=== PATIENT | male | born 1950 | race American Indian/Alaskan Native ===

== ENCOUNTER 2018-04-19 19:32 | Inpatient (IN) | payer MEDICARE, OTHER ==
[2018-04-19] MEDS ORDERED: NACL 0.9% 1000 ML 1,000 ML IV ONE ×2 (20:19→22:42)
--- NOTE | 2018-04-19 20:25 | Emergency Department Report ---
ED Syncope HPI - General Chief Complaint: Syncope Stated Complaint: GI BLEED/SYNCOPE Time Seen by Provider: 04/19/18 20:18 - History of Present Illness Initial Comments: Patient is a 67-year-old black male is had multiple gastrointestinal issues his head to [facility] in the past who is here because of syncopal episodes. Patient sounded and it abated and he remembers being dizzy. Family state that he sat up after lying for a prolonged period of time and had a syncopal episode. Patient came to and then when trying to get back up asked out again. Patient had a bowel movement on himself at that time which was very dark in nature. Patient has had multiple blood transfusions in the past secondary to GI bleeds. Patient denies any chest pain shortness of breath fevers chills nausea vomiting. Patient has no exertional component to his weakness since he states he just lays around and watches TV most of the day. Patient is denying any abdominal pain at this time. - Related Data Allergies/Adverse Reactions: Allergies sulfamethoxazole [From ] Allergy (Verified 04/19/18 19:43) Hives trimethoprim [From ] Allergy (Verified 04/19/18 19:43) Hives ED Review of Systems ROS: Stated complaint: GI BLEED/SYNCOPE Other details as noted in HPI Comment: All other systems reviewed and negative ED Past Medical Hx - Past Medical History Previous Medical History?: Yes Hx Hypertension: Yes Hx GERD: Yes Hx Dementia: Yes Additional medical history: pancreatitis, GI Bleed - Surgical History Past Surgical History?: Yes Hx Cholecystectomy: Yes Hx Appendectomy: Yes Additional Surgical History: Whipple, B/L shoulder - Social History Smoking Status: Current Every Day Smoker Substance Use Type: Alcohol ED Physical Exam - General Limitations: Altered Mental Status, Physical Limitation General appearance: alert, in no apparent distress - Head Head exam: Present: atraumatic, normocephalic - Eye Eye exam: Present: normal appearance - ENT ENT exam: Present: mucous membranes moist - Neck Neck exam: Present: normal inspection - Respiratory Respiratory exam: Present: normal lung sounds bilaterally. Absent: respiratory distress, wheezes, rales, rhonchi, stridor - Cardiovascular Cardiovascular Exam: Present: regular rate, normal rhythm. Absent: systolic murmur, diastolic murmur, rubs, gallop - GI/Abdominal GI/Abdominal exam: Present: soft, normal bowel sounds, other (patient has a large midline scar is well-healed. Patient's skin is tenting.). Absent: distended, tenderness, guarding, rebound, rigid - Rectal Rectal exam: Present: bloody stool - Extremities Exam Extremities exam: Present: normal inspection - Back Exam Back exam: Present: normal inspection - Neurological Exam Neurological exam: Present: alert, oriented X3 - Psychiatric Psychiatric exam: Present: normal affect, normal mood - Skin Skin exam: Present: warm, dry, intact, normal color. Absent: rash ED Course Vital Signs 04/19/18 04/19/18 04/19/18 20:10 21:00 21:27 Temperature 98 F 97.8 F Pulse Rate 117 H 113 H 113 H Respiratory 18 17 17 Rate Blood Pressure 105/64 Blood Pressure 110/71 105/64 [Right] O2 Sat by Pulse 95 96 96 Oximetry ED Medical Decision Making - Lab Data Result diagrams: 04/19/18 20:33 04/19/18 20:33 Lab Results 04/19/18 04/19/18 04/19/18 Range/Units 20:33 20:33 20:33 WBC 8.9 (4.5-11.0) K/mm3 RBC 3.12 L (3.65-5.03) M/mm3 Hgb 9.8 L (11.8-15.2) gm/dl Hct 29.3 L (35.5-45.6) % MCV 94 (84-94) fl MCH 32 (28-32) pg MCHC 34 (32-34) % RDW 16.0 H (13.2-15.2) % Plt Count 204 (140-440) K/mm3 Lymph % (Auto) 10.6 L (13.4-35.0) % [place] % (Auto) 7.0 (0.0-7.3) % Eos % (Auto) 0.0 (0.0-4.3) % Baso % (Auto) 0.7 (0.0-1.8) % Lymph # 0.9 L (1.2-5.4) K/mm3 [place]y # 0.6 (0.0-0.8) K/mm3 Eos # 0.0 (0.0-0.4) K/mm3 Baso # 0.1 (0.0-0.1) K/mm3 Seg Neutrophils % 81.7 H (40.0-70.0) % Seg Neutrophils # 7.2 (1.8-7.7) K/mm3 PT (12.2-14.9) Sec. INR (0.87-1.13) APTT (24.2-36.6) Sec. Sodium 136 L (137-145) mmol/L Potassium 3.0 L (3.6-5.0) mmol/L Chloride 83.6 L (98-107) mmol/L Carbon Dioxide 37 H (22-30) mmol/L Anion Gap 18 mmol/L BUN 16 (9-20) mg/dL Creatinine 1.3 (0.8-1.5) mg/dL Estimated GFR > 60 ml/min BUN/Creatinine Ratio 12 % Glucose 102 H (75-100) mg/dL Calcium 7.9 L (8.4-10.2) mg/dL Total Bilirubin 0.90 (0.1-1.2) mg/dL AST 44 H (5-40) units/L ALT 28 (7-56) units/L Alkaline Phosphatase 114 (35-129) units/L Total Protein 5.2 L (6.3-8.2) g/dL Albumin 2.5 L (3.9-5) g/dL Albumin/Globulin Ratio 0.9 % Urine Color (Yellow) Urine Turbidity (Clear) Urine pH (5.0-7.0) Ur Specific [place] (1.003-1.030) Urine Protein (Negative) mg/dL Urine Glucose (UA) (Negative) mg/dL Urine Ketones (Negative) mg/dL Urine Blood (Negative) Urine Nitrite (Negative) Urine Bilirubin (Negative) Urine Urobilinogen (<2.0) mg/dL Ur Leukocyte Esterase (Negative) Urine WBC (Auto) (0.0-6.0) /HPF Urine RBC (Auto) (0.0-6.0) /HPF Hyaline Casts /LPF Urine Mucus /HPF Plasma/Serum Alcohol < 0.01 (0-0.07) % Blood Type 04/19/18 04/19/18 04/19/18 Range/Units 20:35 21:35 21:53 WBC (4.5-11.0) K/mm3 RBC (3.65-5.03) M/mm3 Hgb (11.8-15.2) gm/dl Hct (35.5-45.6) % MCV (84-94) fl MCH (28-32) pg MCHC (32-34) % RDW (13.2-15.2) % Plt Count (140-440) K/mm3 Lymph % (Auto) (13.4-35.0) % Posey % (Auto) (0.0-7.3) % Eos % (Auto) (0.0-4.3) % Baso % (Auto) (0.0-1.8) % Lymph # (1.2-5.4) K/mm3 [place]y # (0.0-0.8) K/mm3 Eos # (0.0-0.4) K/mm3 Baso # (0.0-0.1) K/mm3 Seg Neutrophils % (40.0-70.0) % Seg Neutrophils # (1.8-7.7) K/mm3 PT 12.5 (12.2-14.9) Sec. INR 0.90 (0.87-1.13) APTT 24.0 L (24.2-36.6) Sec. Sodium (137-145) mmol/L Potassium (3.6-5.0) mmol/L Chloride (98-107) mmol/L Carbon Dioxide (22-30) mmol/L Anion Gap mmol/L BUN (9-20) mg/dL Creatinine (0.8-1.5) mg/dL Estimated GFR ml/min BUN/Creatinine Ratio % Glucose (75-100) mg/dL Calcium (8.4-10.2) mg/dL Total Bilirubin (0.1-1.2) mg/dL AST (5-40) units/L ALT (7-56) units/L Alkaline Phosphatase (35-129) units/L Total Protein (6.3-8.2) g/dL Albumin (3.9-5) g/dL Albumin/Globulin Ratio % Urine Color Straw (Yellow) Urine Turbidity Clear (Clear) Urine pH 6.0 (5.0-7.0) Ur Specific [place] 1.005 (1.003-1.030) Urine Protein <15 mg/dl (Negative) mg/dL Urine Glucose (UA) Neg (Negative) mg/dL Urine Ketones Neg (Negative) mg/dL Urine Blood Neg (Negative) Urine Nitrite Neg (Negative) Urine Bilirubin Neg (Negative) Urine Urobilinogen < 2.0 (<2.0) mg/dL Ur Leukocyte Esterase Neg (Negative) Urine WBC (Auto) < 1.0 (0.0-6.0) /HPF Urine RBC (Auto) < 1.0 (0.0-6.0) /HPF Hyaline Casts 3 /LPF Urine Mucus Few /HPF Plasma/Serum Alcohol (0-0.07) % Blood Type O POSITIVE - EKG Data -: EKG Interpreted by Sd - EKG Data 04/19/18 22:34 Sinus tachycardia rate of 112. Normal axis normal intervals. Patient has an occasional PVCs. There are no ST segment elevations or depressions. Time of interpretation is 2024 - Radiology Data [facility] [address] [place] [address] Cat Scan Report Signed Patient: STACIE SAXENA JR MR#: [id number] : 1950 Acct:[id number] Age/Sex: 67 / M ADM Date: 04/19/18 Loc: ED Attending Dr: Ordering Physician: YADIRA JOSEPH MD Date of Service: 04/19/18 Procedure(s): CT head/brain wo con Accession Number(s): [id number] cc: YADIRA JOSEPH MD FINAL REPORT EXAM: CT HEAD/BRAIN WO CON HISTORY: closed head injury, syncope TECHNIQUE: 2.5 millimeter axial images from the skullbase to the vertex. Comparison: None FINDINGS: There is no evidence of an acute intracranial process, intracranial hemorrhage or mass effect. Low attenuation in the subcortical and deep white matter of the cerebral hemispheres bilaterally most likely represents chronic post ischemic demyelination/small vessel disease. Ventricular size is concordant with the degree of atrophy. The visualized portions of the orbits, paranasal and mastoid sinuses are unremarkable. The bony structures are unremarkable. There is no evidence of fracture. IMPRESSION: 1. No evidence of an acute intracranial process, intracranial hemorrhage or mass effect. 2. No evidence of fracture. Transcribed By: ED Dictated By: OC IZQUIERDO MD Electronically Authenticated By: OC IZQUIERDO MD Signed Date/Time: 01/10/29 2150 DD/ 53 TD/TT: 04/19/182153 - Medical Decision Making Patient with obvious GI bleed. Patient will be admitted to the hospitalist service at this time. Patient's hemoglobin at this admission is just slightly decreased however with the amount of blood the patient has in the rectal vault sure that his hemoglobin will drop. Patient will have repeat hemoglobin performed. Critical Care Time: Yes (30) Critical care attestation.: If time is entered above; I have spent that time in minutes in the direct care of this critically ill patient, excluding procedure time. ED Disposition Clinical Impression: Hypokalemia GI bleed Qualifiers: GI bleed type/associated pathology: unspecified gastrointestinal hemorrhage t ype Qualified Code(s): K92.2 - Gastrointestinal hemorrhage, unspecified Syncope Qualifiers: Syncope type: unspecified Qualified Code(s): R55 - Syncope and collapse Disposition: 09 OP ADMIT IP TO THIS HOSP Is pt being admited?: Yes Does the pt Need Aspirin: No Condition: Stable Instructions: Syncope (ED) Time of Disposition: 22:36
[2018-04-19 21:06] LABS: INR 0.9 (0.87-1.13)
[2018-04-19 21:09] LABS: Basophils # (Auto) 0.1 K/mm3 (0.0-0.1); Basophils % (Auto) 0.7 % (0.0-1.8); Hematocrit 29.3 % (35.5-45.6); Hemoglobin 9.8 gm/dl (11.8-15.2); Lymphocytes # (Auto) 0.9 K/mm3 (1.2-5.4); Lymphocytes % (Auto) 10.6 % (13.4-35.0); Mean Corpuscular HGB Conc 34 % (32-34); Mean Corpuscular Volume 94 fl (84-94); Monocytes # (Auto) 0.6 K/mm3 (0.0-0.8); Platelet Count 204 K/mm3 (140-440); Red Blood Count 3.12 M/mm3 (3.65-5.03)
[2018-04-19 21:16] LABS: Alanine Aminotransferase 28 units/L (7-56); Albumin 2.5 g/dL (3.9-5); BUN/Creatinine Ratio 12; Blood Urea Nitrogen 16 mg/dL (9-20); Calcium 7.9 mg/dL (8.4-10.2); Hemolysis Index 11
[2018-04-19] MEDS ORDERED: KCL 10MEQ/100ML 10 MEQ/100 ML BAG IV ONE (21:40)
--- NOTE | 2018-04-19 21:51 | Cat Scan Report ---
FINAL REPORT EXAM: CT HEAD/BRAIN WO CON HISTORY: closed head injury, syncope TECHNIQUE: 2.5 millimeter axial images from the skullbase to the vertex. Comparison: None FINDINGS: There is no evidence of an acute intracranial process, intracranial hemorrhage or mass effect. Low attenuation in the subcortical and deep white matter of the cerebral hemispheres bilaterally most likely represents chronic post ischemic demyelination/small vessel disease. Ventricular size is concordant with the degree of atrophy. The visualized portions of the orbits, paranasal and mastoid sinuses are unremarkable. The bony structures are unremarkable. There is no evidence of fracture. IMPRESSION: 1. No evidence of an acute intracranial process, intracranial hemorrhage or mass effect. 2. No evidence of fracture.
[2018-04-19 22:23] LABS: Bilirubin,Urine NEG (Negative); Blood,Urine NEG (Negative); Color,Urine Straw (Yellow); Hyaline Casts,Urine 3 /LPF; Mucus,Urine FEW /HPF; Protein,Urine <15 mg/dL mg/dL (Negative); RBC,Urine < 1.0 /HPF (0.0-6.0); Urobilinogen,Urine < 2.0 mg/dL (<2.0); WBC,Urine < 1.0 /HPF (0.0-6.0)
[2018-04-19 23:18] LABS: Hematocrit 25.5 % (35.5-45.6); Hemoglobin 8.7 gm/dl (11.8-15.2)
[2018-04-20] MEDS: PROTONIX IV SCH ×3 (00:50→23:27)
[2018-04-20] MEDS ORDERED: PROTONIX IV ONE (00:51)
[2018-04-20] MEDS ORDERED: NACL 0.9% 1000 ML 1,000 ML ONE (00:51)
[2018-04-20] MEDS: NACL 0.9% 1000 ML 1,000 ML IV SCH ×2 (00:53→09:57)
--- NOTE | 2018-04-20 05:05 | History and Physical Report ---
CHIEF COMPLAINT: Syncopal attack. Other complaints include dark tarry stool. HISTORY OF PRESENT ILLNESS: The patient is a 67-year-old man who had a syncopal episode and said he remembers feeling dizzy and family said that the patient sat up after lying for a prolonged period of time and had a syncopal episode. While he was trying to get up, he passed out again and the patient was noted to have bowel movement on himself at the time of passing out with a dark tarry stool noted. There was no history of shortness of breath. No history of chest pain and no history of nausea and vomiting. The patient noted that he has been feeling weak prior to this episode and there was no history of abdominal pain. The patient was brought to the Emergency Room where he was examined and found to have dark bloody stool and presented for admission. PAST MEDICAL HISTORY: Pertinent for hypertension, gastroesophageal reflux disease, dementia, gastrointestinal bleeding in the past, pancreatitis. PAST SURGICAL HISTORY: Pertinent for cholecystectomy, appendectomy, bilateral shoulder surgery, Whipple surgery. FAMILY HISTORY: Noncontributory. SOCIAL HISTORY: The patient smokes cigarettes, drinks alcohol and does not use illicit drugs. MEDICATIONS: The patient's home medications include Lasix 40 mg by mouth twice daily, Ativan 1 mg by mouth every 6 hours, metolazone 2.5 mg by mouth every 48 hours, omeprazole 40 mg by mouth daily, prednisone 10 mg 2 tablets by mouth twice daily, Seroquel XR 50 mg 1 by mouth at bedtime, trazodone 100 mg by mouth at bedtime. ALLERGIES: The patient is allergic to SULFA DRUGS. REVIEW OF SYSTEMS: CONSTITUTIONAL: There is no fever, no chills, no diaphoresis. HEENT: There is no headache or sore throat. CARDIOVASCULAR SYSTEM: There is no chest pain or orthopnea. RESPIRATORY SYSTEM: There is no shortness of breath or cough. GASTROINTESTINAL SYSTEM: There is no abdominal pain, nausea, vomiting, or diarrhea but there is dark bloody stool. NEUROLOGICAL SYSTEM: Syncopal attack noted. No altered mental status. MUSCULOSKELETAL SYSTEM: There is no joint pain or swelling. DERMATOLOGICAL SYSTEM: There is no skin rash or itching. GENITOURINARY SYSTEM: There is no dysuria, hematuria, or flank pain. Rest of system review is normal. PHYSICAL EXAMINATION: GENERAL: At the time of exam, the patient was found to be alert, oriented x 3 and not in acute distress. VITAL SIGNS: Initial vital signs show temperature of 98 degrees Fahrenheit, pulse of 117, respiration of 18, blood pressure 110/71, O2 sat of 95% on room air. HEENT: Showed pupils to be equal, round, and reactive to light and accommodating. Extraocular motions are intact. NECK: Supple with no JVD or carotid bruit. CARDIOVASCULAR SYSTEM: Showed normal first and second heart sounds with no gallops or murmurs. RESPIRATORY SYSTEM: Showed good air entry on both sides of the lungs with no abnormal breath sounds. GASTROINTESTINAL SYSTEM: Showed abdomen to be full, soft, nontender with no organomegaly or rigidity. NEUROLOGICAL: Showed no focal deficit. MUSCULOSKELETAL SYSTEM: Showed no joint swelling or tenderness. DERMATOLOGICAL SYSTEM: Showed no skin rash. GENITOURINARY SYSTEM: Showing no costovertebral angle tenderness. PERTINENT LABORATORY AND IMAGING STUDIES: The patient had a CBC done with normal white count, low hemoglobin of 8.7, and low hematocrit of 25.5 with unremarkable CBC differential. Coagulation studies came back unremarkable. The patient's chemistry showed low sodium of 136, low potassium of 3.0, and low chloride of 83.6 and low calcium of 7.9 with correspondingly low albumin of 2.5. The patient's urinalysis was unremarkable. IMAGING STUDIES: The patient had CT of the head without contrast done that shows no acute intracranial lesion. DIAGNOSES: 1. Gastrointestinal bleed. 2. Syncope. 3. Hypokalemia. PLAN: 1. The patient will be admitted to telemetry. 2. The patient will have hemoglobin and hematocrit checked every 6 hours x 3 more levels. 3. The patient will remain n.p.o. and will have GI consult with Dr. Vincent Sánchez of [facility]. 4. The patient will have 2D echo done this morning because of syncope and will have bilateral carotid Doppler done. 5. The patient will have cardiac enzymes involving troponin, total CK and CK-MB checked q.6 hours x 2 more levels. The patient will have IV normal saline running at 125 mL an hour and will be on IV Protonix 40 mg q.12hours. 6. The patient will have basic metabolic panel done this morning to monitor the potassium level. 7. The patient has already been given some IV potassium replacement in the Emergency Room. 8. The patient will remain n.p.o. for possible endoscopy by the Gastroenterology. JOB# [id number] OCN/NTS
[2018-04-20 06:38] LABS: Hematocrit 24.5 % (35.5-45.6); Hemoglobin 8.2 gm/dl (11.8-15.2)
[2018-04-20 06:53] LABS: BUN/Creatinine Ratio 18; Blood Urea Nitrogen 16 mg/dL (9-20); Hemolysis Index 20
[2018-04-20 07:01] LABS: Creatine Kinase MB < 1.0 ng/mL (0.0-4.0)
--- NOTE | 2018-04-20 09:19 | Progress Note ---
Assessment and Plan Assessment and plan: Patient is a 67 yo man with a history of anemia, hypertension, GERD, GIB, Dementia, pancreatitis, Whipple procedure and tobacco dependency who presents to [facility] ED after syncopal episode and dark tarry stools. -Syncope, appears vasovagal, overnight telemetry without any events -Severe hypokalemia: replete and recheck in AM -Severe malnutrition, bmi 15.5: consult Administrative Services Coordinator -Anemia, appears chronic blood loss anemia, with bloody rectal exam, treat the hypokalemia prior to any intervention, h/h did not change much. GI consult pending -Tobacco dependency: education counselor on stopping prolonged inpatient services 32 minutes, admitted this morning History Interval history: Patient was seen and examined. Follow-up on current diagnosis of syncope. Overnight uneventful. Patient denies any chest pain, shortness breath, nausea/vomiting or severe headaches. Imaging, nursing note, chart, labs and old chart reviewed. Discussed with patient. Hospitalist Physical - Physical exam Narrative exam: Gen: thin frail NAD, Awake, Alert, Orientated HEENT: NCAT, EOMI, PERRL, OP Clear Neck: supple, no adenopathy, no thyromegaly, no JVD CVS/Heart: RRR, normal S1S2, pulses present bilaterally Chest/Lungs: CTA B, Symmetrical chest expansion, good air entry bilaterally GI/Abdomen: soft, NTND, good bowel sounds, no guarding or rebound /Bladder: no suprapubic tenderness, no CVA or paraspinal tenderness Extermity/Skin: no c/c/e, no obvious rash MSK: FROM x 4 Neuro: CN 2-12 grossly intact, no new focal deficits Psych: calm - Constitutional Vitals: Temp Pulse Resp BP Pulse Ox 98.3 F 98 H 18 106/68 99 04/20/18 09:01 04/20/18 09:01 04/20/18 09:01 04/20/18 09:01 04/20/18 09:01 Results - Labs CBC & Chem 7: 04/20/18 06:11 04/20/18 06:11 Labs: Laboratory Last Values WBC 8.9 K/mm3 (4.5-11.0) 04/19/18 20:33 RBC 3.12 M/mm3 (3.65-5.03) L 04/19/18 20:33 Hgb 8.2 gm/dl (11.8-15.2) L 04/20/18 06:11 Hct 24.5 % (35.5-45.6) L 04/20/18 06:11 MCV 94 fl (84-94) 04/19/18 20:33 MCH 32 pg (28-32) 04/19/18 20:33 MCHC 34 % (32-34) 04/19/18 20:33 RDW 16.0 % (13.2-15.2) H 04/19/18 20:33 Plt Count 204 K/mm3 (140-440) 04/19/18 20:33 Lymph % (Auto) 10.6 % (13.4-35.0) L 04/19/18 20:33 [place] % (Auto) 7.0 % (0.0-7.3) 04/19/18 20:33 Eos % (Auto) 0.0 % (0.0-4.3) 04/19/18 20:33 Baso % (Auto) 0.7 % (0.0-1.8) 04/19/18 20:33 Lymph # 0.9 K/mm3 (1.2-5.4) L 04/19/18 20:33 [place] # 0.6 K/mm3 (0.0-0.8) 04/19/18 20:33 Eos # 0.0 K/mm3 (0.0-0.4) 04/19/18 20:33 Baso # 0.1 K/mm3 (0.0-0.1) 04/19/18 20:33 Seg Neutrophils % 81.7 % (40.0-70.0) H 04/19/18 20:33 Seg Neutrophils # 7.2 K/mm3 (1.8-7.7) 04/19/18 20:33 PT 12.5 Sec. (12.2-14.9) 04/19/18 20:35 INR 0.90 (0.87-1.13) 04/19/18 20:35 APTT 24.0 Sec. (24.2-36.6) L 04/19/18 20:35 Sodium 137 mmol/L (137-145) 04/20/18 06:11 Potassium 2.4 mmol/L (3.6-5.0) L* 04/20/18 06:11 Chloride 90.8 mmol/L (98-107) L 04/20/18 06:11 Carbon Dioxide 36 mmol/L (22-30) H 04/20/18 06:11 Anion Gap 13 mmol/L 04/20/18 06:11 BUN 16 mg/dL (9-20) 04/20/18 06:11 Creatinine 0.9 mg/dL (0.8-1.5) 04/20/18 06:11 Estimated GFR > 60 ml/min 04/20/18 06:11 BUN/Creatinine Ratio 18 % 04/20/18 06:11 Glucose 70 mg/dL (75-100) L 04/20/18 06:11 Calcium 7.0 mg/dL (8.4-10.2) L 04/20/18 06:11 Total Bilirubin 0.90 mg/dL (0.1-1.2) 04/19/18 20:33 AST 44 units/L (5-40) H 04/19/18 20:33 ALT 28 units/L (7-56) 04/19/18 20:33 Alkaline Phosphatase 114 units/L (35-129) 04/19/18 20:33 Total Creatine Kinase 51 units/L (55-170) L 04/20/18 06:11 CK-MB (CK-2) < 1.0 ng/mL (0.0-4.0) 04/20/18 06:11 CK-MB (CK-2) Rel Index 1.9 (0-4) 04/20/18 06:11 Troponin T < 0.010 ng/mL (0.00-0.029) 04/20/18 06:11 Total Protein 5.2 g/dL (6.3-8.2) L 04/19/18 20:33 Albumin 2.5 g/dL (3.9-5) L 04/19/18 20:33 Albumin/Globulin Ratio 0.9 % 04/19/18 20:33 Urine Color Straw (Yellow) 04/19/18 21:53 Urine Turbidity Clear (Clear) 04/19/18 21:53 Urine pH 6.0 (5.0-7.0) 04/19/18 21:53 Ur Specific [place] 1.005 (1.003-1.030) 04/19/18 21:53 Urine Protein <15 mg/dl mg/dL (Negative) 04/19/18 21:53 Urine Glucose (UA) Neg mg/dL (Negative) 04/19/18 21:53 Urine Ketones Neg mg/dL (Negative) 04/19/18 21:53 Urine Blood Neg (Negative) 04/19/18 21:53 Urine Nitrite Neg (Negative) 04/19/18 21:53 Urine Bilirubin Neg (Negative) 04/19/18 21:53 Urine Urobilinogen < 2.0 mg/dL (<2.0) 04/19/18 21:53 Ur Leukocyte Esterase Neg (Negative) 04/19/18 21:53 Urine WBC (Auto) < 1.0 /HPF (0.0-6.0) 04/19/18 21:53 Urine RBC (Auto) < 1.0 /HPF (0.0-6.0) 04/19/18 21:53 Hyaline Casts 3 /LPF 04/19/18 21:53 Urine Mucus Few /HPF 04/19/18 21:53 Plasma/Serum Alcohol < 0.01 % (0-0.07) 04/19/18 20:33 Blood Type O POSITIVE 04/19/18 21:35 Antibody Screen Negative 04/19/18 21:35
[2018-04-20] MEDS ORDERED: POTASSIUM CHLORIDE PO ONE (10:00)
--- NOTE | 2018-04-20 11:09 | Gastroenterology Consultation ---
Addendum entered and electronically signed by LUPIS CASILLAS MD 04/20/18 19:15: I have personally interviewed and examined the patient. I agree with the above A/P. The patient was unable to get EGD today due to severe hypokalemia. Will re-attempt tomorrow. Active EtOH use likely leading to metabolic derangements as much as pancreatic insufficiency. Continue protonix, and keep NPO after Mn for endoscopy. Original Note: History of Present Illness - Reason for Consult Consult date: 04/20/18 GI bleed Requesting physician: ELIZA JAMES - History of Present Illness Patient is a 67 y/o male with PMH of tobacco dependency, chronic pancreatitis, dementia, HTN, GERD, chronic anemia, and s/p Miah pancreaticojejunostomy in 05/15 alcoholic pancreatitis with B-II who presented to ED with c/o syncope and dark stool. GI has been consulted for GI bleed. Patient is previously known to our service with a Hx of GI bleeding in 12/2016 due to anastomotic ulcer requiring clip and again in 02/2017 for a LGI bleed thought to be diverticular vs hemorrhoidal in nature. He was last seen in our office in 07/2017 for decrease appetite and wt loss after stopping Megace and underwent an EGD/colonoscopy 08/2017 with no gross lesions found. This morning patient was resting in bed w/o acute distress. Oriented to person. No family at bedside but spoke with patient's daughter over the phone (Sidra) who assisted with history. She reports BMs x 2 days with dark stool. No hematemesis or hematochezia. Last BM this am per nursing with dark black stool. Denies fever, CP, SOB, abd pain, N/V, diarrhea, or constipation. No NSAID use. On daily PPI at home. Continues to drink alcohol with 1 beer/day and 2-3 shots of liquor/week. Past History Past Medical History: other (as per HPI) Past Surgical History: bowel surgery (s/p Miah pancreaticojejunostomy in 05/15 alcoholic pancreatitis with B-II), Other (shoulder) Social history: smoking, other (alcohol) Family history: no significant family history Medications and Allergies Allergies Allergy/AdvReac Type Severity Reaction Status Date / Time sulfamethoxazole Allergy Hives Verified 04/19/18 19:43 [From ] trimethoprim [From ] Allergy Hives Verified 04/19/18 19:43 Home Medications Medication Instructions Recorded Confirmed Last Taken Type Furosemide [Lasix TAB] 40 mg PO BID 04/19/18 04/19/18 Unknown History HYDROcodone/ACETAMINOPHEN 1 tab PO Q6HR PRN 04/19/18 04/19/18 Unknown History [Hydrocodone-Acetamin 10-325 mg] LORazepam [Ativan] 1 tab PO Q6HR PRN 04/19/18 04/19/18 Unknown History Omeprazole 40 mg PO DAILY 04/19/18 04/19/18 Unknown History Quetiapine Fumarate [SEROquel XR] 1 tab PO HS 04/19/18 04/19/18 Unknown History metOLazone [Metolazone] 2.5 mg PO Q48HR 04/19/18 04/19/18 Unknown History predniSONE [Prednisone] 2 tab PO BID 04/19/18 04/19/18 Unknown History traZODone [Desyrel] 100 mg PO QHS 04/19/18 04/19/18 Unknown History Active Meds: Active Medications Sodium Chloride (Nacl 0.9% 1000 Ml) 1,000 mls @ 125 mls/hr IV DIRECT MARCEL Last Admin: 04/20/18 09:57 Dose: 125 mls/hr Documented by: Potassium Chloride (Kcl 10meq/100ml) 10 meq in 100 mls @ 100 mls/hr IV Q1H MARCEL Stop: 04/20/18 13:59 Pantoprazole Sodium (Protonix) 40 mg IV Q12HR MARCEL Last Admin: 04/20/18 10:05 Dose: 40 mg Documented by: medications reviewed/updated as required Review of Systems - Review of Systems All systems: negative Gastrointestinal: melena Exam - Constitutional Vital Signs: Temp Pulse Resp BP Pulse Ox 98.3 F 98 H 18 106/68 99 04/20/18 09:01 04/20/18 09:01 04/20/18 09:01 04/20/18 09:01 04/20/18 09:01 General appearance: no acute distress, other (thin appearing) - Respiratory Respiratory: bilateral: CTA (anterior) - Cardiovascular Rhythm: regular Heart Sounds: Present: S1 & S2 - Gastrointestinal General gastrointestinal: Present: soft, non-tender, non-distended, normal bowel sounds Rectal Exam: other (black stool mixed with scant amount of dark red blood- aerodynamics teacher present during exam (Pilar RITTER)) - Neurologic Neurological: oriented to person - Labs CBC & Chem 7: 04/20/18 06:11 04/20/18 06:11 Lab Results: Laboratory Results - last 24 hr 04/19/18 04/19/18 04/19/18 20:33 20:33 20:33 WBC 8.9 RBC 3.12 L Hgb 9.8 L Hct 29.3 L MCV 94 MCH 32 MCHC 34 RDW 16.0 H Plt Count 204 Lymph % (Auto) 10.6 L [place] % (Auto) 7.0 Eos % (Auto) 0.0 Baso % (Auto) 0.7 Lymph # 0.9 L [place] # 0.6 Eos # 0.0 Baso # 0.1 Seg Neutrophils % 81.7 H Seg Neutrophils # 7.2 PT INR APTT Sodium 136 L Potassium 3.0 L Chloride 83.6 L Carbon Dioxide 37 H Anion Gap 18 BUN 16 Creatinine 1.3 Estimated GFR > 60 BUN/Creatinine Ratio 12 Glucose 102 H Calcium 7.9 L Total Bilirubin 0.90 AST 44 H ALT 28 Alkaline Phosphatase 114 Total Creatine Kinase CK-MB (CK-2) CK-MB (CK-2) Rel Index Troponin T Total Protein 5.2 L Albumin 2.5 L Albumin/Globulin Ratio 0.9 Urine Color Urine Turbidity Urine pH Ur Specific [place] Urine Protein Urine Glucose (UA) Urine Ketones Urine Blood Urine Nitrite Urine Bilirubin Urine Urobilinogen Ur Leukocyte Esterase Urine WBC (Auto) Urine RBC (Auto) Hyaline Casts Urine Mucus Plasma/Serum Alcohol < 0.01 Blood Type Antibody Screen 04/19/18 04/19/18 04/19/18 20:35 21:35 21:53 WBC RBC Hgb Hct MCV MCH MCHC RDW Plt Count Lymph % (Auto) [place] % (Auto) Eos % (Auto) Baso % (Auto) Lymph # [place] # Eos # Baso # Seg Neutrophils % Seg Neutrophils # PT 12.5 INR 0.90 APTT 24.0 L Sodium Potassium Chloride Carbon Dioxide Anion Gap BUN Creatinine Estimated GFR BUN/Creatinine Ratio Glucose Calcium Total Bilirubin AST ALT Alkaline Phosphatase Total Creatine Kinase CK-MB (CK-2) CK-MB (CK-2) Rel Index Troponin T Total Protein Albumin Albumin/Globulin Ratio Urine Color Straw Urine Turbidity Clear Urine pH 6.0 Ur Specific [place] 1.005 Urine Protein <15 mg/dl Urine Glucose (UA) Neg Urine Ketones Neg Urine Blood Neg Urine Nitrite Neg Urine Bilirubin Neg Urine Urobilinogen < 2.0 Ur Leukocyte Esterase Neg Urine WBC (Auto) < 1.0 Urine RBC (Auto) < 1.0 Hyaline Casts 3 Urine Mucus Few Plasma/Serum Alcohol Blood Type O POSITIVE Antibody Screen Negative 04/19/18 04/20/18 04/20/18 23:07 06:11 06:11 WBC RBC Hgb 8.7 L 8.2 L Hct 25.5 L 24.5 L MCV MCH MCHC RDW Plt Count Lymph % (Auto) [place] % (Auto) Eos % (Auto) Baso % (Auto) Lymph # [place] # Eos # Baso # Seg Neutrophils % Seg Neutrophils # PT INR APTT Sodium 137 Potassium 2.4 L* Chloride 90.8 L Carbon Dioxide 36 H Anion Gap 13 BUN 16 Creatinine 0.9 Estimated GFR > 60 BUN/Creatinine Ratio 18 Glucose 70 L Calcium 7.0 L Total Bilirubin AST ALT Alkaline Phosphatase Total Creatine Kinase 51 L CK-MB (CK-2) < 1.0 CK-MB (CK-2) Rel Index 1.9 Troponin T < 0.010 Total Protein Albumin Albumin/Globulin Ratio Urine Color Urine Turbidity Urine pH Ur Specific [place] Urine Protein Urine Glucose (UA) Urine Ketones Urine Blood Urine Nitrite Urine Bilirubin Urine Urobilinogen Ur Leukocyte Esterase Urine WBC (Auto) Urine RBC (Auto) Hyaline Casts Urine Mucus Plasma/Serum Alcohol Blood Type Antibody Screen Assessment and Plan 1.GI bleed 2.H/o pancreatic surgery (s/p Miah pancreaticojejunostomy in 2007 2/2 alcoholic pancreatitis with B-II) -H/H 8.2 -continue to monitor H/H and transfuse as needed -hold blood thinning medications -currently HD stable- monitor closely -Daughter (Sidra [phone]) reports dark stools x 2 days. Last BM this am with dark black stool per nursing- rectal exam revealed black stool mixed with scant amount of dark red blood -patient has a hx of prior GI bleeding in 12/2016 due to anastomotic ulcer requiring clip and 02/2017 likely 2/2 diverticular vs hemorrhoidal bleed -Last EGD/colonoscopy in 08/2017 for wt loss showed irregular z-line, medium hiatal hernia, s/p gastric bypass, and internal hemorrhoids (prep poor) -etiology- likely 2/2 recurrent ulcer vs other -will schedule for EGD today -Keep NPO -continue PPI -alcohol/tobacco cessation discussed with pt/family -electrolyte management per primary team -continue supportive care -will follow
[2018-04-20] MEDS: KCL 10MEQ/100ML 10 MEQ/100 ML BAG IV SCH ×4 (12:34→18:19)
[2018-04-20 12:39] LABS: Hematocrit 27.6 % (35.5-45.6); Hemoglobin 9.2 gm/dl (11.8-15.2)
--- NOTE | 2018-04-20 12:45 | Vascular Lab Report ---
FINAL REPORT EXAM: VL CAROTID DUPLEX BILAT HISTORY: SYNCOPE TECHNIQUE: Grayscale and color and spectral Doppler ultrasound imaging of the carotid arteries was p erformed. PRIORS: None. FINDINGS: No areas of complete occlusion. Normal waveforms are seen throughout. No aneurysm. Calcified atherosc lerotic plaque is seen bilaterally. Normal flow is seen in the external carotid arteries. Antegrade f low is seen in the vertebral arteries. Peak systolic velocities in cm/s below: Right: CCA: 62.5 proximally, 59.0 distally ICA: 32.3 proximally, 62.9 mid, 51.6 distally ECA: 55.5 Left: CCA: 60.8 proximally, 53.3 distally ICA: 43.7 proximally, 42.1 mid, 64.2 distally ECA: 88.0 The right ICA:CCA ratio is 1.01. The left ICA:CCA ratio is 1.06. IMPRESSION: Calcified atherosclerotic plaque bilaterally with less than 50 percent stenosis of the internal carot id arteries.
[2018-04-20 13:05] LABS: Creatine Kinase MB < 1.0 ng/mL (0.0-4.0)
[2018-04-20 16:46] LABS: Hematocrit 22.6 % (35.5-45.6); Hemoglobin 7.6 gm/dl (11.8-15.2)
[2018-04-20] MEDS ORDERED: K-DUR PO STA (17:39)
[2018-04-20] MEDS ORDERED: K-DUR PO ONE (18:10)
[2018-04-20] MEDS ORDERED: MAGNESIUM SULFATE 2GM/50ML 2 GM/50 ML BAG IV ONE (18:41)
[2018-04-21 05:50] LABS: Hematocrit 23.1 % (35.5-45.6); Hemoglobin 7.7 gm/dl (11.8-15.2); Mean Corpuscular HGB Conc 34 % (32-34); Mean Corpuscular Volume 94 fl (84-94); Platelet Count 169 K/mm3 (140-440); Red Blood Count 2.45 M/mm3 (3.65-5.03); Red Cell Distribution Width 16.4 % (13.2-15.2)
[2018-04-21 06:06] LABS: BUN/Creatinine Ratio 13; Blood Urea Nitrogen 9 mg/dL (9-20); Calcium 7.4 mg/dL (8.4-10.2); Hemolysis Index 12
[2018-04-21] MEDS: NACL 0.9% 1000 ML 1,000 ML IV SCH ×2 (12:46→23:15)
[2018-04-21] MEDS: KCL 10MEQ/100ML 10 MEQ/100 ML BAG IV SCH ×2 (12:47→16:28)
[2018-04-21] MEDS: PROTONIX IV SCH (12:47)
[2018-04-21] MEDS ORDERED: NACL 0.9% 1000 ML 1,000 ML IV SCH (14:00)
[2018-04-21] MEDS ORDERED: DIPRIVAN 10 MG/ML IV ONE (14:03)
--- NOTE | 2018-04-21 14:18 | Post Operative Note ---
Pre-op diagnosis: Anemia Post-op diagnosis: other (Post-surgical changes; anastamotic ulcers) Findings: 1. Post-surgical changes with one efferent limb, but not typical for Tony 2. Four ulcers at surgical anastamosis sites (3-10mm); all white based and likely ischemic - Cold biopsies taken 3. Chronic gastritis Procedure: EGD with cold bx Anesthesia: MAC Surgeon: LUPIS CASILLAS Estimated blood loss: minimal Pathology: list (1. GJ anastamosis) Specimen disposition: to lab Condition: stable Disposition: floor (Recs: 1. Resume pancreatic enzymes. 2. MVI daily. 3. Stop tobacco and ethanol. 4. OK to d/c and f/u in our clinic.)
--- NOTE | 2018-04-21 14:31 | Anesthesia Consultation ---
Anesthesia Consult and Med Hx Date of service: 04/21/18 - Airway Anesthetic Teeth Evaluation: Dentures (upper) ROM Head & Neck: Adequate Mental/Hyoid Distance: Adequate Mallampati Class: Class II Intubation Access Assessment: Probably Good - Pre-Operative Health Status ASA Pre-Surgery Classification: ASA3 Proposed Anesthetic Plan: MAC - Pulmonary Hx Smoking: Yes (current smoker) - Cardiovascular System Hx Hypertension: Yes - Central Nervous System Hx Psychiatric Problems: Yes (dementia) - Endocrine Hx Liver Disease: Yes (pancreatitis, s/p Whipple procedure (')) - Other Systems Hx Alcohol Use: Yes
--- NOTE | 2018-04-21 14:32 | Anesthesia Day of Surgery ---
Anesthesia Day of Surgery - Day of Surgery Patient Examined: Yes Patient H&P Reviewed: Yes Patient is NPO: Yes
[2018-04-21] MEDS ORDERED: D50W (25GM) Syringe IV PRN (14:44)
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
[2018-04-21] MEDS ORDERED: D50W (25GM) Syringe IV ONE (14:49)
[2018-04-21] MEDS: HumaLOG SUB-Q SCH ×3 (15:00→23:15)
--- NOTE | 2018-04-21 15:08 | Operative Report ---
PROCEDURE PERFORMED: Esophagogastroduodenoscopy with cold biopsy. PREOPERATIVE DIAGNOSES: Anemia and history of ulcers. POSTOPERATIVE DIAGNOSES: Post-surgical changes and anastomotic ulcers. ENDOSCOPIST: Yanick Edward MD INSTRUMENT: RevTrax video endoscope. MEDICATIONS: MAC anesthesia by Anesthesia Services. COMPLICATIONS: No apparent complications. ESTIMATED BLOOD LOSS: Minimal. SPECIMEN: Gastrojejunal anastomosis. IMPLANTS: None. ASSISTANTS: None. CONDITION AT COMPLETION: Stable. TECHNIQUE: The patient was informed of the risks and benefits of the procedure. He signed the informed consent to proceed. He was placed in left lateral decubitus position. The above sedative medications were given. His vital signs remained stable throughout the procedure. The instrument was advanced from the mouth to the small bowel under direct visualization. At that point, the bowel was insufflated and the endoscope was slowly withdrawn. FINDINGS: 1. Post-surgical changes were seen in the distal stomach with 1 major efferent limb noted into the small bowel; this was not diagnostic for Tony-en-Y anastomosis, but more consistent with a distal gastrectomy and rerouting of the intestines consistent with his prior pancreaticojejunostomy. 2. Four ulcers were noted at the surgical anastomosis site, ranging in size from 3 mm to 10 mm; all were white-based and likely ischemic. A. Cold biopsies were taken of the margins of the ulcers. 3. Chronic gastritis. 4. Otherwise, normal esophagus. RECOMMENDATIONS: 1. Resume oral pancreatic enzymes. 2. Multivitamin daily. 3. The patient should discontinue tobacco and alcohol abuse. 4. Okay to discharge the patient home and follow up in our clinic. JOB# [id number] RENATA/NTS
[2018-04-21] MEDS: Centrum Liq PO SCH (17:28)
[2018-04-21] MEDS: CREON DR 12,000 UNITS PO SCH (17:28)
[2018-04-21] MEDS ORDERED: DESYREL PO SCH (23:00)
[2018-04-21] MEDS: NORCO 5/325 PO PRN (23:16)
[2018-04-22] MEDS: NORCO 5/325 PO PRN (05:28)
[2018-04-22] MEDS: HumaLOG SUB-Q SCH ×2 (05:29→13:13)
[2018-04-22 05:40] LABS: Hematocrit 26.1 % (35.5-45.6); Hemoglobin 8.6 gm/dl (11.8-15.2); Mean Corpuscular HGB Conc 33 % (32-34); Mean Corpuscular Volume 96 fl (84-94); Platelet Count 200 K/mm3 (140-440); Red Blood Count 2.71 M/mm3 (3.65-5.03); Red Cell Distribution Width 16.8 % (13.2-15.2)
[2018-04-22 05:59] LABS: BUN/Creatinine Ratio 13; Blood Urea Nitrogen 8 mg/dL (9-20); Calcium 7.5 mg/dL (8.4-10.2); Hemolysis Index 7
[2018-04-22] MEDS: CREON DR 12,000 UNITS PO SCH ×2 (08:30→13:17)
[2018-04-22] MEDS: NACL 0.9% 1000 ML 1,000 ML IV SCH (08:42)
[2018-04-22] MEDS: Centrum Liq PO SCH (09:32)
[2018-04-22] MEDS ORDERED: PROTONIX PO SCH (10:00)
--- NOTE | 2018-04-22 10:31 | Gastroenterology Progress Note ---
Addendum entered and electronically signed by LUPIS CASILLAS MD 04/22/18 15:07: I have personally interviewed and examined the patient. Clinically stable without gross bleeding. Original Note: Assessment and Plan 1.GI bleed/dark stool 2.anemia 3.H/o pancreatic surgery (s/p Miah pancreaticojejunostomy in 2007 2/2 alcoholic pancreatitis with B-II) -H/H 8.6/26.1-tending up -continue to monitor H/H and transfuse as needed -patient has a hx of prior GI bleeding in 12/2016 due to anastomotic ulcer requiring clip and 02/2017 likely 2/2 diverticular vs hemorrhoidal bleed -Last EGD/colonoscopy in 08/2017 for wt loss showed irregular z-line, medium hiatal hernia, s/p gastric bypass, and internal hemorrhoids (prep poor) -etiology- likely 2/2 recurrent ulcer vs other -s/p EGD yesterday that revealed post-surgical changes with one efferent limb, four ulcers at surgical anastabosis sites (3-10mm; all white based and likely ischemic), and chronic gastritis -bx results pending-f/u results in clinic -clinically, patient is stable w/o GI complaints or active signs of bleeding. Tolerating diet. -continue PPI, pancreatic enzymes, and daily MVI -alcohol/tobacco cessation -continue supportive care -patient okay to be d/c per GI standpoint with follow up in clinic ~2 weeks -will sign off, please call if needed Subjective Date of service: 04/22/18 Principal diagnosis: GIB Interval history: Patient sitting up in bed this am eating breakfast w/o distress. No active signs of bleeding overnight or this am per pt and nursing. Denies abd pain or N/V. Objective - Constitutional Vitals: Temp Pulse Resp BP Pulse Ox 98.2 F 120 H 18 114/74 93 04/22/18 07:59 04/22/18 09:39 04/22/18 07:58 04/22/18 07:58 04/22/18 07:58 General appearance: no acute distress - Respiratory Respiratory: bilateral: CTA (anterior) - Cardiovascular Rhythm: other (tachycardia) - Gastrointestinal General gastrointestinal: Present: soft, non-tender, non-distended, normal bowel sounds - Labs CBC & Chem 7: 04/22/18 04:50 04/22/18 04:50 Labs: Laboratory Results - last 24 hr 04/21/18 04/21/18 04/22/18 16:46 23:17 04:50 WBC 5.1 RBC 2.71 L Hgb 8.6 L Hct 26.1 L MCV 96 H MCH 32 MCHC 33 RDW 16.8 H Plt Count 200 Sodium Potassium Chloride Carbon Dioxide Anion Gap BUN Creatinine Estimated GFR BUN/Creatinine Ratio Glucose POC Glucose 108 H 129 H Calcium Magnesium 04/22/18 04/22/18 04:50 05:27 WBC RBC Hgb Hct MCV MCH MCHC RDW Plt Count Sodium 140 Potassium 3.5 L Chloride 101.3 Carbon Dioxide 31 H Anion Gap 11 BUN 8 L Creatinine 0.6 L Estimated GFR > 60 BUN/Creatinine Ratio 13 Glucose 91 POC Glucose 126 H Calcium 7.5 L Magnesium 2.40 H
[2018-04-22 13:13] VITALS: BP 138/92
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
[2018-04-22] MEDS ORDERED: K-DUR PO ONE (16:00)
== END 2018-04-22 16:43 | disposition home or self-care (01) | DRG 377 ==
LOC: ED 19:32 → 4A 04-20 00:04
PROVIDERS: ADMIT Internal Medicine; ATTEND Internal Medicine
PROC: 0DB68ZX Excision of Stomach, Via Natural or Artificial Opening Endoscopic, Diagnostic (ICD-10-PCS; principal; 2018-04-21)
DX: K92.2 Gastrointestinal hemorrhage, unspecified (principal); E43 Unspecified severe protein-calorie malnutrition; K85.90 Acute pancreatitis without necrosis or infection, unspecified; R55 Syncope and collapse; E87.6 Hypokalemia; D64.9 Anemia, unspecified; I10 Essential (primary) hypertension; K21.9 Gastro-esophageal reflux disease without esophagitis; E16.2 Hypoglycemia, unspecified; F17.210 Nicotine dependence, cigarettes, uncomplicated; F03.90 Unspecified dementia, unspecified severity, without behavioral disturbance, psychotic disturbance, mood disturbance, and anxiety; Z68.20 Body mass index [BMI] 20.0-20.9, adult; Z71.6 Tobacco abuse counseling; Z90.49 Acquired absence of other specified parts of digestive tract; Z72.89 Other problems related to lifestyle; Z88.2 Allergy status to sulfonamides; Z79.899 Other long term (current) drug therapy
CPT/HCPCS: 36415; 70450; 80048; 80053; 80320; 81001; 82550; 82553; 82962; 83735; 84132; 84484; 85014; 85018; 85025; 85027; 85610; 85730; 86850; 86900; 86901; 88305; 88312; 93005; 93010; 93306; 93880; 96360; 96361; G0378; C9113; G0480; J2704; J3475; J3480; J7030